=== PATIENT | female | born 1935 | race Caucasian/White ===

== ENCOUNTER 2016-07-10 09:13 | Emergency (ER) | payer MEDICARE, BC ==
[~2016-07-10] VITALS: Ht 167.6 cm; Wt 65.9 kg
[~2016-07-10 09:13] MED LIST: PREDNISONE20 MG PO
[2016-07-10 09:16] VITALS: TEMP 98.3
[2016-07-10 10:41] LABS: HEMATOCRIT 37.8 % (37.0-47.0); MEAN CELL VOLUME 88 fl (80.0-100.0); MEAN CORPUSCULAR HEMOGLOBIN 28 pg (27.0-31.0); MEAN CORPUSCULAR HGB CONC 32 g/dl (33.0-37.0); PLATELET COUNT 278 K/mm3 (130-400); RED BLOOD COUNT 4.32 M/mm3 (4.10-5.30); REDCELL DISTRIBUTION WIDTH-CV 13.7 % (11.5-14.5); WHITE BLOOD COUNT 9.7 K/mm3 (4.8-10.8)
[2016-07-10 10:43] LABS: HEMOGLOBIN 11.9 g/dl (12.5-16.0)
[2016-07-10 10:44] LABS: ADD PATHOLOGY DIFF REVIEW NO
[2016-07-10 10:50] LABS: ADJUSTED CALCIUM 9.2 mg/dL (8.4-10.2); ALBUMIN 3.2 gm/dL (3.5-5.0); BILIRUBIN,TOTAL 1.1 mg/dL (0.0-1.0); CALCIUM 8.6 mg/dL (8.4-10.2); CREATININE, serum 0.77 mg/dL (0.52-1.25); POTASSIUM 3.6 mmol/L (3.4-5.0); TOTAL PROTEIN 6.6 gm/dL (6.4-8.2)
[2016-07-10 11:20] LABS: BAND 64 % (0-10); BASOPHIL 1 % (0-2); EOSINOPHIL 0 % (0-4); METAMYELOCYTE 3 % (0-0); MYELOCYTE 2 % (0-0); NEUTROPHILS 7 % (42.0-75.2); TOTAL CELLS COUNTED 100
[2016-07-10] MEDS ORDERED: ZESTRIL 5MG5 MG PO (12:10)
[2016-07-10] MEDS ORDERED: SYNTHROID0.112 MG/T PO (12:10)
[2016-07-10] MEDS ORDERED: ASACOL HD800 MG PO (12:10)
[2016-07-10] MEDS ORDERED: MULTIPLE VITAMI1 CAP PO (12:11)
[2016-07-10] MEDS ORDERED: VITAMIN D32000 IU PO (12:11)
[2016-07-10] MEDS ORDERED: CALCIUM 600MG+D1 TAB PO (12:11)
[2016-07-10] MEDS ORDERED: NATURE'S BLEND400 IU PO (12:12)
[2016-07-10] MEDS ORDERED: CO Q-1010 M1 PO (12:12)
[2016-07-10] MEDS ORDERED: VITAMIN B-1000 MCG/T PO (12:13)
[2016-07-10] MEDS ORDERED: ASPIRIN E.C. 8181 MG PO (12:13)
[2016-07-10] MEDS ORDERED: VITAMIN B-6100 MG PO (12:13)
[2016-07-10] MEDS ORDERED: OCUVITE1 TA1 PO (12:14)
[2016-07-10] MEDS ORDERED: VITAMIN C500 MG PO (12:14)
[2016-07-10] MEDS ORDERED: PREDNISONE20 MG PO (12:38)
[2016-07-10 12:58] VITALS: BP 138/70; PULSE 85
== END 2016-07-10 13:08 | disposition home or self-care (01) ==
LOC: COL.ER 09:13
PROVIDERS: Physician Assistant
DX: K52.9 Noninfective gastroenteritis and colitis, unspecified (principal); I10 Essential (primary) hypertension
CPT/HCPCS: J7030; J7512; Q9967

== ENCOUNTER → 2016-07-11 | Outpatient (CLI) | payer MEDICARE, BC ==
[~2016-07-11] MED LIST changes: +ASACOL HD800 MG PO; +ASPIRIN E.C. 8181 MG PO; +CALCIUM 600MG+D1 TAB PO; +CO Q-1010 M1 PO; +MULTIPLE VITAMI1 CAP PO; +NATURE'S BLEND400 IU PO; +OCUVITE1 TA1 PO; +SYNTHROID0.112 MG/T PO; +VITAMIN B-1000 MCG/T PO; +VITAMIN B-6100 MG PO; +VITAMIN C500 MG PO; +VITAMIN D32000 IU PO; +ZESTRIL 5MG5 MG PO
== END ==
LOC: ZCOL.LAB 09:17
DX: Z01.89 Encounter for other specified special examinations (principal)

== ENCOUNTER → 2016-09-11 | Outpatient (CLI) | payer MEDICARE, BC | LOC: MC.RAD 13:39 | DX: Z12.31 Encounter for screening mammogram for malignant neoplasm of breast (principal) ==

== ENCOUNTER → 2016-10-28 | Outpatient (CLI) | payer MEDICARE, BC | LOC: COL.RAD 12:45 | DX: E04.1 Nontoxic single thyroid nodule (principal) ==

== ENCOUNTER → 2017-09-28 | Outpatient (CLI) | payer MEDICARE, BC | LOC: MC.RAD 10:18 | DX: Z12.31 Encounter for screening mammogram for malignant neoplasm of breast (principal) ==

== ENCOUNTER → 2018-10-25 | Outpatient (CLI) | payer MEDICARE, BC | LOC: MC.RAD 10-12 14:45 | DX: Z12.31 Encounter for screening mammogram for malignant neoplasm of breast (principal); I10 Essential (primary) hypertension ==

== ENCOUNTER 2021-01-12 07:58 | Emergency (ER) | payer MEDICARE, BC ==
[~2021-01-12] VITALS: Ht 165.1 cm; Wt 60.9 kg
[2021-01-12 08:07] VITALS: TEMP 97.8
[2021-01-12 08:30] LABS: BASO % 0.3 % (0.0-2.0); EOS # 0.1 (0.0-0.7); EOS % 0.9 % (0-4.0); GRAN # 8.8 (1.4-6.5); GRAN % 80.3 % (42.2-75.2); HEMATOCRIT 42.6 % (37.0-47.0); HEMOGLOBIN 13.5 g/dl (12.5-16.0); MEAN CELL VOLUME 84 fl (80.0-100.0); MEAN CORPUSCULAR HEMOGLOBIN 27 pg (27.0-31.0); MEAN CORPUSCULAR HGB CONC 32 g/dl (33.0-37.0); MONO % 9.1 % (1.7-9.3); PLATELET COUNT 270 K/mm3 (130-400); RED BLOOD COUNT 5.07 M/mm3 (4.10-5.30); REDCELL DISTRIBUTION WIDTH-CV 16.7 % (11.5-14.5)
[2021-01-12 08:43] LABS: ALBUMIN 3.8 gm/dL (3.4-4.8); BILIRUBIN,TOTAL 0.5 mg/dL (0.2-1.2); C-REACTIVE PROTEIN 1.1 mg/dL (0.00-0.50); CALCIUM 9.8 mg/dL (8.4-10.2); CREATININE, serum 0.79 mg/dL (0.57-1.11); POTASSIUM 4.3 mmol/L (3.5-4.5); TOTAL PROTEIN 7.7 gm/dL (6.2-8.1)
[2021-01-12 09:01] LABS: COLLECTION METHOD CLEAN CATCH
[2021-01-12 09:11] LABS: MUCOUS Present /lpf; PH 6 (5-8); SQUAMOUS EPITHELIAL 0-2 /hpf; URINE APPEARANCE Clear; URINE BACTERIA None Seen /hpf; URINE BILIRUBIN Negative (NEGATIVE); URINE BLOOD Negative (NEGATIVE); URINE COLOR Yellow; URINE GLUCOSE Negative (NEGATIVE); URINE KETONE Trace (NEGATIVE); URINE LEUKOCYTE ESTERASE Negative (NEGATIVE); URINE NITRATE Negative (NEGATIVE); URINE PROTEIN(semi-quant) 1+ (NEGATIVE); URINE UROBILINOGEN Negative (NEGATIVE)
[2021-01-12] MEDS ORDERED: PREDNISONE20 MG PO (10:40)
[2021-01-12] MEDS ORDERED: NORCO 325 MG-51 TAB PO (10:47)
[2021-01-12 11:08] VITALS: BP 140/70; PULSE 80
[2021-01-13] MEDS ORDERED: ZOFRAN ODT4 MG PO (09:30)
== END 2021-01-12 11:07 | disposition home or self-care (01) ==
LOC: COL.ER 07:58
PROVIDERS: Family Medicine
DX: K51.90 Ulcerative colitis, unspecified, without complications (principal); I10 Essential (primary) hypertension; Z88.5 Allergy status to narcotic agent; Z79.899 Other long term (current) drug therapy
CPT/HCPCS: J2270; J2405; J2930; J7120; Q9967

== ENCOUNTER 2021-01-13 05:12 | Emergency (ER) | payer MEDICARE, BC ==
[~2021-01-13] VITALS: Ht 165.1 cm; Wt 60.9 kg
[~2021-01-13 05:12] MED LIST changes: +NORCO 325 MG-51 TAB PO
[2021-01-13 05:22] VITALS: TEMP 97.9
[2021-01-13 05:40] LABS: BASO % 0.2 % (0.0-2.0); EOS % 0.1 % (0-4.0); GRAN # 11.9 (1.4-6.5); GRAN % 84.1 % (42.2-75.2); HEMATOCRIT 38.2 % (37.0-47.0); HEMOGLOBIN 12.3 g/dl (12.5-16.0); LYMPH # 1.1 (1.2-3.4); LYMPH % 7.6 % (20.0-51.0); MEAN CELL VOLUME 84 fl (80.0-100.0); MEAN CORPUSCULAR HEMOGLOBIN 27 pg (27.0-31.0); MEAN CORPUSCULAR HGB CONC 32 g/dl (33.0-37.0); MEAN PLATELET VOLUME 10.6 fl (7.4-10.4); MONO # 1.1 (0.1-0.6); MONO % 7.6 % (1.7-9.3); PLATELET COUNT 276 K/mm3 (130-400); RED BLOOD COUNT 4.55 M/mm3 (4.10-5.30); REDCELL DISTRIBUTION WIDTH-CV 16.7 % (11.5-14.5)
[2021-01-13 07:54] LABS: ALBUMIN 3.6 gm/dL (3.4-4.8); BILIRUBIN,TOTAL 0.4 mg/dL (0.2-1.2); CALCIUM 9.4 mg/dL (8.4-10.2); CREATININE, serum 0.8 mg/dL (0.57-1.11); POTASSIUM 4.1 mmol/L (3.5-4.5); TOTAL PROTEIN 7.3 gm/dL (6.2-8.1); TROPONIN-I 0.011 ng/mL (0.00-0.033)
[2021-01-13] MEDS ORDERED: ZOFRAN ODT4 MG PO (09:30)
[2021-01-13 09:43] VITALS: BP 152/74; PULSE 67
== END 2021-01-13 09:42 | disposition home or self-care (01) ==
LOC: COL.ER 05:12
PROVIDERS: Emergency Medicine
DX: K51.90 Ulcerative colitis, unspecified, without complications (principal); R11.2 Nausea with vomiting, unspecified; Z90.710 Acquired absence of both cervix and uterus; Z79.899 Other long term (current) drug therapy
CPT/HCPCS: J1100; J1170; J1885; J2270; J2405; J7030

== ENCOUNTER 2021-05-29 11:01 | Inpatient (IN) | payer MEDICARE, BC ==
[~2021-05-29] VITALS: Ht 165.1 cm; Wt 52.6 kg
[~2021-05-29 11:01] MED LIST changes: +SYNTHROID0.075 MG/T PO; -SYNTHROID0.112 MG/T PO; -ZESTRIL 5MG5 MG PO; +ZESTRIL2.5 MG PO; +ZOFRAN ODT4 MG PO
[2021-05-29 11:43] LABS: HEMATOCRIT 38.8 % (37.0-47.0); HEMOGLOBIN 12.2 g/dl (12.5-16.0); MEAN CELL VOLUME 82 fl (80.0-100.0); MEAN CORPUSCULAR HEMOGLOBIN 26 pg (27-31); MEAN CORPUSCULAR HGB CONC 31 g/dl (33.0-37.0); MEAN PLATELET VOLUME 9.8 fl (7.4-10.4); PLATELET COUNT 387 K/mm3 (130-400); RED BLOOD COUNT 4.74 M/mm3 (4.10-5.30); REDCELL DISTRIBUTION WIDTH-CV 14.9 % (11.5-14.5)
[2021-05-29 11:59] LABS: ALANINE AMINOTRANSFERASE 12 U/L (0-55); ALBUMIN 2.7 gm/dL (3.4-4.8); ALKALINE PHOSPHATASE 87 U/L (40-150); ANION GAP 12 mmol/L (7-16); AST,SGOT 11 U/L (5-34); BILIRUBIN,TOTAL 0.7 mg/dL (0.2-1.2); BLOOD UREA NITROGEN 24 mg/dL (10-20); C-REACTIVE PROTEIN 15.03 mg/dL (0.00-0.50); CALCIUM 8.7 mg/dL (8.4-10.2); CARBON DIOXIDE 26 mmol/L (23-31); CHLORIDE 102 mmol/L (98-107); GLUCOSE 107 mg/dL (70-99); LIPASE 12 U/L (8-78); SODIUM 140 mmol/L (136-145); TOTAL PROTEIN 6.4 gm/dL (6.2-8.1)
[2021-05-29 12:05] LABS: TROPONIN-I < 0.010 ng/mL (0.00-0.033)
[2021-05-29 12:13] LABS: BAND 22 % (0-10); HYPOCHROMIA 1+; LYMPHOCYTE 8 % (20.0-51.0); NEUTROPHILS 59 % (42.0-75.2); PLATELET ESTIMATE NORMAL (NORMAL)
[2021-05-29 15:36] VITALS: BP 145/74; PULSE 60; TEMP 98.9
[2021-05-29] MEDS ORDERED: CENTRUM SILVER1 TA2 PO (15:52)
[2021-05-29] MEDS ORDERED: PRESERVISION1 SGL PO (15:53)
[2021-05-29] MEDS ORDERED: PREVACID 15MG15 M1 PO (15:54)
[2021-05-29] MEDS ORDERED: ADVIL200 MG PO (15:56)
[2021-05-29] MEDS ORDERED: MASON NATURAL2000 IU IU (15:59)
--- NOTE | 2021-05-29 18:32 | NUR ---
ADMISSION INTAKE AND ASSESSMENT COMPLETED. ORIENTED PT TO ROOM. CONTINUING TO MONITOR.
--- NOTE | 2021-05-29 20:00 | NUR ---
NOTIFIED MINDY ARIAS OF AFIB WITH RVR. GIVE METOPROLOL NOW.
--- NOTE | 2021-05-29 20:02 | NUR ---
REPORTED BY TELE PT IS IN AFIB WITH RVR. ORDERED EKG. PT UP TO BR TO HAVE A BM. OTR FLATBED DRIVER WITH PT.
[2021-05-29 20:13] VITALS: BP 103/87; PULSE 107; TEMP 98.4
--- NOTE | 2021-05-29 20:17 | NUR ---
GAVE METOPROLOL ORDERED. EKG DONE. RATE 128. PT DENIES CHEST PAIN OR SOB. JUST FEELS WEAK. HAD LOOSE STOOL WITH SM AMT OF BLOOD NOTED.
--- NOTE | 2021-05-29 20:35 | NUR ---
PT RESTING WITH EYES CLOSED. NO DISTRESS. RHYTHM AFIB AT THIS TIME.
--- NOTE | 2021-05-29 20:39 | NUR ---
HR 117
--- NOTE | 2021-05-29 21:04 | NUR ---
REPORTED PT STATUS TO MINDY ARIAS. SEE NEW ORDER FOR PROTONIX FOR ABD DISCOMFORT.
--- NOTE | 2021-05-29 22:08 | NUR ---
ASSITED PT TO BR. HAD BM. SPECIMEN SENT TO LAB FOR GI PANEL.
[2021-05-30] VITALS (7 sets, daily range): BP systolic 95–113; BP diastolic 48–62; PULSE 85–108; TEMP 98–102.1
--- NOTE | 2021-05-30 00:06 | NUR ---
REPORTED GI PANEL RESULTS TO MINDY ARIAS. NONEW ORDERS.
--- NOTE | 2021-05-30 00:50 | NUR ---
TEMP 102.1 CALLED MINDY ARIAS SEE NEW ORDERS FOR TYLENOL.
--- NOTE | 2021-05-30 01:00 | NUR ---
HEP XA 0.45. RATE IS THE UNCHANGED. WILL OBTAIN NEXT HEPA XA AT 0700.
--- NOTE | 2021-05-30 02:38 | NUR ---
TEMP 98.5 NOW.
--- NOTE | 2021-05-30 03:03 | NUR ---
PT RESTING AT THIS TIME. NO DISTRESS.
--- NOTE | 2021-05-30 06:12 | NUR ---
PT RESTING NOW. NO DISTRESS. HEPARING INFUSING 10.5CC/HR PER PROTOCOL TO RT WRIST.
[2021-05-30 07:02] LABS: HEMOGLOBIN 11.2 g/dl (12.5-16.0); MEAN CELL VOLUME 81 fl (80.0-100.0); MEAN CORPUSCULAR HEMOGLOBIN 26 pg (27-31); MEAN CORPUSCULAR HGB CONC 32 g/dl (33.0-37.0); MEAN PLATELET VOLUME 9.9 fl (7.4-10.4); PLATELET COUNT 328 K/mm3 (130-400); RED BLOOD COUNT 4.31 M/mm3 (4.10-5.30)
[2021-05-30 07:13] LABS: HEMATOCRIT 34.8 % (37.0-47.0)
[2021-05-30 07:23] LABS: CALCIUM 8.1 mg/dL (8.4-10.2); CREATININE, serum 0.71 mg/dL (0.57-1.11); POTASSIUM 3.6 mmol/L (3.5-4.5)
[2021-05-30 07:59] LABS: COLLECTION METHOD CLEAN CATCH
[2021-05-30 08:33] LABS: MUCOUS Present (NOT PRESENT); SQUAMOUS EPITHELIAL 0-2 /hpf (0-10); URINE BACTERIA None Seen /hpf (NONE SEEN)
[2021-05-30 08:34] LABS: URINE APPEARANCE Clear (CLEAR/HAZY); URINE COLOR Yellow (YELLOW)
[2021-05-30 08:35] LABS: PH 6 (5-8); URINE GLUCOSE Negative (NEGATIVE); URINE KETONE Trace (NEGATIVE); URINE PROTEIN(semi-quant) Negative (NEGATIVE)
[2021-05-30 08:36] LABS: URINE BILIRUBIN Negative (NEGATIVE); URINE BLOOD Negative (NEGATIVE); URINE LEUKOCYTE ESTERASE Negative (NEGATIVE); URINE NITRATE Negative (NEGATIVE); URINE UROBILINOGEN Negative (NEGATIVE)
[2021-05-30 09:25] LABS: BAND 35 % (0-10); EOSINOPHIL 1 % (0-4); LYMPHOCYTE 19 % (20.0-51.0); NEUTROPHILS 35 % (42.0-75.2); PLATELET ESTIMATE NORMAL (NORMAL)
--- NOTE | 2021-05-30 11:10 | NUR ---
Patient laying in bed upon entering the room. Does c/o lower abdominal pain, but is refusing any pain medication. Hep XA came back WNL, which equals 3 goals; Next Hep XA to be scheduled for 0600 on 05/31.
--- NOTE | 2021-05-30 11:26 | NUR ---
First visit from the customer loyalty representative. No needs right now.
--- NOTE | 2021-05-30 15:23 | NUR ---
Wig Maker met with patient and her , Pedro (ph#[phone]) to discuss discharge planning. Patient lives in [place] with Pedro and sees Dr. Odonnell for primary care. Patient obtains medications from [facility] pharmacy with no difficulties and does not use any DME. Patient is independent with ADLS and plans to return home at time of discharge. Patient reports she has never had home health in the past and would have to think about it before deciding if she would be interested or not. Patient states she believes she had a DPOA-HC at Dr. Torres's office. Patient's next of kin is her , Pedro. Discharge Plan: Home
--- NOTE | 2021-05-30 18:01 | NUR ---
Patient has not had any complaints or concerns. Assisted to the bathroom 2x by PCT. Received call from telemetry that patient's HR jumped to the 140s, patient was getting up to the bathroom at this time. Once patient was back in bed, HR dropped back to a normal range. Patient's HR is currently in the 80-90s, and remains in A-fib. Patient did not experience any dizzness, CP, or SOB upon ambulation to the bathroom. Heparin GTT remains at 10.5mL/hr; Next redraw scheduled for 0600 on 05/31.
--- NOTE | 2021-05-30 20:24 | NUR ---
Patient with HR of Afib RVR 160 when up, 120-140 when in bed, call placed to Dr. Metzger NON: change metroprolol to 25mg po BID. updated patient on plan of care.
[2021-05-31 04:22] VITALS: BP 107/49; PULSE 68; TEMP 98.4
[2021-05-31 06:50] LABS: HEMOGLOBIN 10.9 g/dl (12.5-16.0); MEAN CELL VOLUME 83 fl (80.0-100.0); MEAN CORPUSCULAR HEMOGLOBIN 26 pg (27-31); MEAN CORPUSCULAR HGB CONC 31 g/dl (33.0-37.0); MEAN PLATELET VOLUME 11.1 fl (7.4-10.4); PLATELET COUNT 313 K/mm3 (130-400); RED BLOOD COUNT 4.25 M/mm3 (4.10-5.30); REDCELL DISTRIBUTION WIDTH-CV 15.1 % (11.5-14.5)
[2021-05-31 06:54] LABS: CREATININE, serum 0.72 mg/dL (0.57-1.11); POTASSIUM 3.5 mmol/L (3.5-4.5)
[2021-05-31 06:57] LABS: HEMATOCRIT 35.4 % (37.0-47.0)
--- NOTE | 2021-05-31 07:38 | NUR ---
Hep Xa came back at 0.14, protocol followed; Patient's bolused 1,000 units via pump, rate increased by 250 units/hr. New rate 1,300 units/hr. Confirmed gabby Bridges RN.
[2021-05-31 07:54] LABS: BAND 37 % (0-10); LYMPHOCYTE 11 % (20.0-51.0); NEUTROPHILS 46 % (42.0-75.2)
[2021-05-31 07:55] LABS: OVALOCYTES 1+; PLATELET ESTIMATE NORMAL (NORMAL)
[2021-05-31 08:02] VITALS: BP 99/52; PULSE 63; TEMP 98.1
[2021-05-31 11:10] VITALS: BP 108/53; PULSE 86; TEMP 98.1
--- NOTE | 2021-05-31 14:09 | NUR ---
Shift assessment completed w/ student nurse. This RN agrees with the student nurses findings. Patient is A&Ox4, and a SBA. Patient has a steady gait, but is just a litte bit weak. Patient utilizes call light when any needs arise, and call light remains w/in reach. Patient's Hep Xa came back w/in the goal range. Next redraw is scheduled for 1800. Plan is for patient to come off the heparin gtt at 2100 and begin eliquis.
--- NOTE | 2021-05-31 14:38 | NUR ---
Patient called stating she had a bloody stool and that she felt the nurse should come look at it. This RN assessed, there was a large amount of bright red, liquid stool present in the toilet. This RN attempted to contact Dori and Dr. Craig, w/o any answer. At this time, it was decided by this RN to place the heparin gtt on standby until further direction is provided by the hospitalist.
--- NOTE | 2021-05-31 14:43 | NUR ---
Dr. Craig instructed this RN to hold the heparin gtt for now.
[2021-05-31 16:00] VITALS: BP 110/52; PULSE 82; TEMP 97.9
[2021-05-31 18:12] LABS: HEMOGLOBIN 10.2 g/dl (12.5-16.0)
[2021-05-31 18:15] LABS: HEMATOCRIT 33.2 % (37.0-47.0)
[2021-05-31 20:16] VITALS: BP 105/53; PULSE 45; TEMP 98.8
[2021-06-01 00:12] VITALS: BP 104/58; PULSE 84; TEMP 98.6
[2021-06-01 04:07] VITALS: BP 127/67; PULSE 87; TEMP 98
--- NOTE | 2021-06-01 04:30 | NUR ---
ASSESSMENT COMPLETE FOR THIS SHIFT. PT RESTING IN BED. PT STATED SHE HAD JUST GOTTEN OUT OF THE BATHROOM WITH ANOTHER ROUND OF LOOSE STOOLS. PT STATED SHE WAS STARTING TO GET EXHAUSTED FROM ALL THE GETTING UP TO THE RESTROOM. HOSPITAL CALLED TO SEE IF PT COULD GET ANYTHING. BECAUSE OF PT'S POSITIVE GI PANEL, PT UNABLE TO GET ANYTHING AT THIS TIME. PT INFORMED. PT DENIED BLOODY STOOLS THIS SHIFT, PAIN, PALPITATIONS, N,V, SOB OR DIZZINESS. PT EXPRESSED NO OTHER NEEDS AT THIS TIME. CALL LIGHT WITHIN REACH.
[2021-06-01 07:19] LABS: CALCIUM 7.9 mg/dL (8.4-10.2); CREATININE, serum 0.66 mg/dL (0.57-1.11); MAGNESIUM 1.9 mg/dL (1.6-2.6); POTASSIUM 3.6 mmol/L (3.5-4.5)
[2021-06-01 07:34] LABS: MEAN CELL VOLUME 83 fl (80.0-100.0); MEAN CORPUSCULAR HGB CONC 31 g/dl (33.0-37.0); MEAN PLATELET VOLUME 10.2 fl (7.4-10.4); PLATELET COUNT 297 K/mm3 (130-400); RED BLOOD COUNT 3.84 M/mm3 (4.10-5.30); REDCELL DISTRIBUTION WIDTH-CV 15.1 % (11.5-14.5)
[2021-06-01 07:47] LABS: HEMATOCRIT 31.8 % (37.0-47.0); HEMOGLOBIN 9.8 g/dl (12.5-16.0); MEAN CORPUSCULAR HEMOGLOBIN 26 pg (27-31)
[2021-06-01 08:39] VITALS: BP 118/61; PULSE 85; TEMP 97.6
--- NOTE | 2021-06-01 09:20 | NUR ---
PT RESTING IN BED. MORNING MEDICATIONS GIVEN. SHIFT ASSESSMENT COMPLETED. PT REPORTS PAIN ACROSS ABDOMEN /, HAS NOTHING ON eMAR FOR PAIN OTHER THAN TYLENOL WHICH PT STATES DOES NOTHING FOR HER. HAS HAD MULTIPLE LOOSE STOOLS OVER NIGHT. CONTINUING TO MONITOR.
[2021-06-01 11:18] LABS: BAND 28 % (0-10); EOSINOPHIL 4 % (0-4); LYMPHOCYTE 16 % (20.0-51.0); NEUTROPHILS 30 % (42.0-75.2); PLATELET ESTIMATE NORMAL (NORMAL)
[2021-06-01 11:19] LABS: ANISOCYTOSIS 1+; HYPOCHROMIA 3+
[2021-06-01 13:00] VITALS: BP 118/66; PULSE 96; TEMP 98.3
[2021-06-01 16:30] VITALS: BP 152/72; PULSE 90; TEMP 98.3
[2021-06-01 19:52] VITALS: BP 120/68; PULSE 103; TEMP 97.9
[2021-06-02] VITALS (8 sets, daily range): BP systolic 103–138; BP diastolic 62–88; PULSE 59–112; TEMP 97.5–97.9
--- NOTE | 2021-06-02 04:20 | NUR ---
ASSESSMENT COMPLETE FOR THIS SHIFT. PT SITTING ON THE SIDE OF THE BED COMPLAINING OF ABD PAIN SHE RATED AT AN 8. PT STATED SHE WAS TOLD BY DR. PIKE HE WOULD ORDER IV MORPHINE FOR HER PAIN. NO MORPHINE ORDER IN FOR PT. HOSPITALIST CALLED, MORPHINE ORDER REQUESTED AND GIVEN. PT GIVEN MORPHINE 3 TIMES, SO FAR TONIGHT. PT REPORTS THE FIRST DOSE WAS NOT EFFECTIVE, SECOND DOSE BROUGHT HER PAIN DOWN TO A 6 AND I JUST GAVE HER A THIRD DOSE, PER HER REQUEST. WILL MONITOR FOR EFFECTIVENESS. PT DENIES PALPITATIONS, N,V,D, SOB OR DIZZINESS. PT EXPRESSED NO OTHER NEEDS AT THIS TIME. CALL LIGHT WITHIN REACH.
--- NOTE | 2021-06-02 07:00 | NUR ---
CORRECT: PT STATES SHE HAS HAD DIARRHEA SEVERAL TIMES THIS SHIFT. UPDATE: PT HAS HAD A 4TH DOSE OF MORPHINE. PT STATES THE PAIN HAS GREATLY IMPROVED ON THE RIGHT TO THE MIDDLE OF HER ABD, BUT THE LEFT SIDE IS STILL AT ABOUT A 5.
--- NOTE | 2021-06-02 10:25 | NUR ---
PT SITTING UP IN BED. MORNING MEDICATIONS GIVEN. SHIFT ASSESSMENT COMPLETED. REPORTS ABD PAIN 09/27. REPORTS MULTIPLE STOOLS OVERNIGHT WITH WATERY CONSISTENCY, WILL OBTAIN STOOL SAMPLE. CONTINUING TO MONITOR.
[2021-06-02 15:32] LABS: CLOSTRIDIUM DIFF A/B NEG; CLOSTRIDIUM DIFF A/B INTERP No C.diff present
--- NOTE | 2021-06-02 18:30 | NUR ---
Report from KIRILL Sue; report given and met patient at bedside, she had complaints of abd pain and we discussed the pros and cons of giving her the morphine she has ordered PRN and decided to give it to her to stay on top of any severe pain. Patient watching TV and resting comfortably.
[2021-06-03] VITALS (8 sets, daily range): BP systolic 105–128; BP diastolic 55–95; PULSE 69–148; TEMP 95.6–98
--- NOTE | 2021-06-03 02:12 | NUR ---
RECEIVED REPORT FROM RN, MID SHIFT.
--- NOTE | 2021-06-03 06:56 | NUR ---
CHANGE OF SHIFT REPORT GIVEN TO DAY SHIFT DONTRELL ROY.
[2021-06-03 07:01] LABS: BASO % 0.5 % (0.0-2.0); GRAN # 7.3 K/mm3 (1.4-6.5); GRAN % 88.7 % (42.2-75.2); LYMPH # 0.5 K/mm3 (1.2-3.4); LYMPH % 5.9 % (20.0-51.0); MEAN CELL VOLUME 82 fl (80.0-100.0); MEAN CORPUSCULAR HEMOGLOBIN 25 pg (27-31); MEAN CORPUSCULAR HGB CONC 31 g/dl (33.0-37.0); MEAN PLATELET VOLUME 10.3 fl (7.4-10.4); MONO # 0.3 K/mm3 (0.1-0.6); MONO % 3.6 % (1.7-9.3); PLATELET COUNT 383 K/mm3 (130-400); RED BLOOD COUNT 3.93 M/mm3 (4.10-5.30); REDCELL DISTRIBUTION WIDTH-CV 15.1 % (11.5-14.5)
[2021-06-03 07:03] LABS: HEMATOCRIT 32.1 % (37.0-47.0)
[2021-06-03 07:21] LABS: C-REACTIVE PROTEIN 7.22 mg/dL (0.00-0.50); CALCIUM 8.4 mg/dL (8.4-10.2); CREATININE, serum 0.72 mg/dL (0.57-1.11); POTASSIUM 3.6 mmol/L (3.5-4.5)
--- NOTE | 2021-06-03 08:53 | NUR ---
PT SITTING UP IN BED. MORNING MEDICATIONS GIVEN. SHIFT ASSESSMENT COMPLETED. REPORTS MILD ABD PAIN, BENTYL GIVEN PER MAR. REPORTS ONLY ONE SMALL LOOSE STOOL OVER NIGHT. STATES SHES FEELING MUCH BETTER TODAY. DENIES ANY NEEDS AT THIS TIME. CONTINUING TO MONITOR.
--- NOTE | 2021-06-03 10:10 | NUR ---
The patient is walking 500 ft with PT. PT is recommending that they will monitor to see if the patient would need home health vs outpatient therapy. SW met with the patient to review discharge plan and PT's recommendation. The patient confirms that she still plans on returning home with her upon discharge. The patient states that she cannot decide right now if she would want home health or outpatient therapy. She would like to wait until she knows when she will be discharged. *Discharge plan: home with . Patient may be interested in home health or outpatient therapy*
--- NOTE | 2021-06-03 18:05 | NUR ---
PT REQUESTING PAIN MEDICATION A COUPLE TIMES TODAY FOR ABD PAIN. OTHER THAN THAT HAD NO OTHER NEEDS TODAY.
--- NOTE | 2021-06-04 | NUR ---
PT REFUSED HER SCD'S TONIGHT.
--- NOTE | 2021-06-04 02:02 | NUR ---
ASSESSMENT COMPLETE FOR THIS SHIFT. PT SITTING ON THE SIDE OF THE BED TALKING ON THE PHONE. PT COMPLAINED OF ABD PAIN. PT GIVEN BENTYL FOR PAIN. PT FELT BENTYL WAS HELPFUL. PT ALSO STATED HER DIARRHEA WAS BACK. PT STATED SHE'S HAD A FEW SMALL, BY LOOSE STOOLS. PT DENIES PALPITATIONS, N,V, SOB OR DIZZNESS. PT EXPRESSED NO OTHER NEEDS AT THIS TIME. CALL LIGHT WITHIN REACH.
[2021-06-04 03:45] VITALS: BP 121/75; PULSE 68; TEMP 97.8
[2021-06-04 06:39] LABS: BASO # 0.1 K/mm3 (0.0-0.2); BASO % 0.6 % (0.0-2.0); GRAN # 9.2 K/mm3 (1.4-6.5); GRAN % 87.6 % (42.2-75.2); HEMOGLOBIN 10.3 g/dl (12.5-16.0); LYMPH # 0.5 K/mm3 (1.2-3.4); LYMPH % 4.8 % (20.0-51.0); MEAN CELL VOLUME 82 fl (80.0-100.0); MEAN CORPUSCULAR HEMOGLOBIN 26 pg (27-31); MEAN CORPUSCULAR HGB CONC 31 g/dl (33.0-37.0); MEAN PLATELET VOLUME 10.3 fl (7.4-10.4); MONO # 0.6 K/mm3 (0.1-0.6); MONO % 5.8 % (1.7-9.3); PLATELET COUNT 392 K/mm3 (130-400); RED BLOOD COUNT 4.02 M/mm3 (4.10-5.30); REDCELL DISTRIBUTION WIDTH-CV 15.3 % (11.5-14.5)
[2021-06-04 06:44] LABS: CALCIUM 8.3 mg/dL (8.4-10.2); CREATININE, serum 0.78 mg/dL (0.57-1.11); POTASSIUM 3.8 mmol/L (3.5-4.5)
[2021-06-04 06:48] LABS: HEMATOCRIT 33.1 % (37.0-47.0)
[2021-06-04 07:10] VITALS: BP 150/82; PULSE 67; TEMP 97.4
[2021-06-04 11:14] VITALS: BP 130/79; PULSE 70; TEMP 97.8
[2021-06-04] MEDS ORDERED: ELIQUIS 2.5 PO (11:39)
[2021-06-04] MEDS ORDERED: TOPROL XL 50MG50 MG PO (11:39)
[2021-06-04] MEDS ORDERED: BENTYL 10MG10 MG/CAP PO (11:39)
[2021-06-04] MEDS ORDERED: PREDNISONE20 MG PO (11:41)
[2021-06-04] MEDS ORDERED: TYLENOL 325MG325 MG PO (11:42)
[2021-06-04] MEDS ORDERED: LIALDA 1.2 GM1.2 GM PO (11:42)
--- NOTE | 2021-06-04 11:50 | NUR ---
MARYANN attended clinical rounds. The patient is to discharge back home with her today, 06/04. MARYANN met with the patient to follow up on home health or outpatient therapy. The patient declined both and states that she is not interested in either at this time. She had no concerns for SW. MARYANN presented and read the IM form outloud to the patient. The patient verbalized understanding and signed the form on her behalf. No additional needs at this time.
--- NOTE | 2021-06-04 13:03 | NUR ---
Discharge paperwork reviewed with the patient. Patient verbalized an understanding to follow doctors orders. IV removed, tip intact. Patient independent in the room. Waiting on ride home. No further needs expressed. Call light within reach
--- NOTE | 2021-06-04 14:05 | NUR ---
Patient transfered by wheelchair to the patient entrance. Discharge paperwork and personal belongings with the patient. No further needs expressed.
--- NOTE | 2021-06-04 14:44 | NUR ---
Agree with student assessment of the patient. In addition, the patient has an INT to the RT forearm ,CDI. A&Ox4. VSS. IV CDI. Denies pain and discomfort. Has been having frequent diarrhea.
== END 2021-06-04 14:05 | disposition home or self-care (01) | DRG 386 ==
LOC: COL.ER 11:01 → MEDICAL 14:04
PROVIDERS: Family Medicine; Internal Medicine Gastroenterology; Physician Assistant; ADMIT Internal Medicine
DX: K51.90 Ulcerative colitis, unspecified, without complications (principal); E44.0 Moderate protein-calorie malnutrition; I48.91 Unspecified atrial fibrillation; I10 Essential (primary) hypertension; E78.5 Hyperlipidemia, unspecified; E03.9 Hypothyroidism, unspecified; B96.20 Unspecified Escherichia coli [E. coli] as the cause of diseases classified elsewhere; D64.9 Anemia, unspecified; Z20.822 Contact with and (suspected) exposure to COVID-19; Z85.828 Personal history of other malignant neoplasm of skin; Z79.82 Long term (current) use of aspirin; Z79.52 Long term (current) use of systemic steroids; Z68.21 Body mass index [BMI] 21.0-21.9, adult
CPT/HCPCS: 99222-AI; 99232-AI; 99233-AI; 99239; C9113; J0610; J0696; J1644; J1940; J2270; J2405; J2930; J7030; J7040; J7120; Q9967

== ENCOUNTER 2021-07-22 08:36 | Day surgery (SDC) | payer MEDICARE, BC ==
[~2021-07-22] VITALS: Ht 165.1 cm; Wt 56.9 kg
[~2021-07-22 08:36] MED LIST changes: +ADVIL200 MG PO; +BENTYL 10MG10 MG/CAP PO; +CENTRUM SILVER1 TA2 PO; +ELIQUIS 2.5 PO; +LIALDA 1.2 GM1.2 GM PO; +MASON NATURAL2000 IU IU; +PRESERVISION1 SGL PO; +PREVACID 15MG15 M1 PO; +TOPROL XL 50MG50 MG PO; +TYLENOL 325MG325 MG PO
[2021-07-22 09:22] VITALS: BP 115/91; PULSE 90; TEMP 97.7
[2021-07-22] MEDS ORDERED: TOPROL XL 50MG50 MG PO (09:35)
[2021-07-22] MEDS ORDERED: ASACOL HD800 MG PO (09:36)
[2021-07-22 09:37] LABS: HEMATOCRIT 31.2 % (37.0-47.0); HEMOGLOBIN 9.6 g/dl (12.5-16.0); MEAN CELL VOLUME 85 fl (80.0-100.0); MEAN CORPUSCULAR HEMOGLOBIN 26 pg (27-31); MEAN CORPUSCULAR HGB CONC 31 g/dl (33.0-37.0); MEAN PLATELET VOLUME 9.4 fl (7.4-10.4); PLATELET COUNT 383 K/mm3 (130-400); RED BLOOD COUNT 3.69 M/mm3 (4.10-5.30); REDCELL DISTRIBUTION WIDTH-CV 17.9 % (11.5-14.5)
[2021-07-22 09:47] LABS: INR 1.3 (0.8-3.0); PROTHROMBIN TIME 14.1 SECONDS (9.7-12.8)
[2021-07-22 09:50] LABS: PARTIAL THROMBOPLASTIN TIME 31.6 SECONDS (26.0-37.0)
[2021-07-22 09:54] LABS: CALCIUM 9.1 mg/dL (8.4-10.2); CREATININE, serum 0.82 mg/dL (0.57-1.11); MAGNESIUM 2.1 mg/dL (1.6-2.6); POTASSIUM 4.5 mmol/L (3.5-4.5)
[2021-07-22 10:15] LABS: THYROID STIMULATING HORMONE 1.484 uIU/mL (0.350-4.940)
[2021-07-22] MEDS ORDERED: CORDARONE200 MG/TAB PO (10:54)
[2021-07-22 11:00] VITALS: BP 95/59; PULSE 60
[2021-07-22 11:15] VITALS: BP 98/60; PULSE 64
[2021-07-22 11:30] VITALS: BP 100/56; PULSE 64
[2021-07-22 11:45] VITALS: BP 108/62; PULSE 64
--- NOTE | 2021-07-22 12:05 | NUR ---
DC instructions were reviewed with pt and . Both expressed understanding. Pt has tolerated PO fluids without issue. She is steady on feet to get dressed but does report feeling sligtly "whoozy" with extended standing. Fall precautions again reviewed with pt and she expresses understanding. She is assisted out to 's car by wheelchair with belongings. She remained in sinus rhythm on panel monitor following cardioversion procedure.
== END 2021-07-22 12:05 | disposition home or self-care (01) ==
LOC: COL.CAR 08:36
PROVIDERS: Internal Medicine Cardiovascular Disease
DX: I48.0 Paroxysmal atrial fibrillation (principal); I10 Essential (primary) hypertension; R60.0 Localized edema; E78.5 Hyperlipidemia, unspecified; C44.91 Basal cell carcinoma of skin, unspecified; Z79.899 Other long term (current) drug therapy; Z79.01 Long term (current) use of anticoagulants
CPT/HCPCS: J2704; J7120

== ENCOUNTER 2021-11-09 22:27 | Emergency (ER) | payer MEDICARE, BC ==
[~2021-11-09] VITALS: Ht 165.1 cm; Wt 58.2 kg
[~2021-11-09 22:27] MED LIST changes: +CORDARONE200 MG/TAB PO
[2021-11-09 22:37] VITALS: TEMP 98.6
[2021-11-09 23:16] LABS: BASO # 0.1 K/mm3 (0.0-0.2); BASO % 0.7 % (0.0-2.0); EOS % 0.3 % (0.0-4.0); GRAN # 12.6 K/mm3 (1.4-6.5); GRAN % 85.5 % (42.2-75.2); HEMATOCRIT 33.8 % (37.0-47.0); HEMOGLOBIN 10.6 g/dl (12.5-16.0); LYMPH # 0.6 K/mm3 (1.2-3.4); LYMPH % 4.2 % (20.0-51.0); MEAN CELL VOLUME 87 fl (80.0-100.0); MEAN CORPUSCULAR HEMOGLOBIN 27 pg (27-31); MEAN CORPUSCULAR HGB CONC 31 g/dl (33.0-37.0); MEAN PLATELET VOLUME 10.5 fl (7.4-10.4); MONO # 1.3 K/mm3 (0.1-0.6); MONO % 8.8 % (1.7-9.3); PLATELET COUNT 249 K/mm3 (130-400); REDCELL DISTRIBUTION WIDTH-CV 17.8 % (11.5-14.5)
[2021-11-09 23:32] LABS: ALBUMIN 3.2 gm/dL (3.4-4.8); BILIRUBIN,TOTAL 0.4 mg/dL (0.2-1.2); C-REACTIVE PROTEIN 4.26 mg/dL (0.00-0.50); CALCIUM 9.4 mg/dL (8.4-10.2); CREATININE, serum 1.14 mg/dL (0.57-1.11); TOTAL PROTEIN 6.4 gm/dL (6.2-8.1)
[2021-11-10 00:59] LABS: COLLECTION METHOD CLEAN CATCH
[2021-11-10 01:09] LABS: MUCOUS Present (NOT PRESENT); PH 5 (5-8); URINE APPEARANCE Hazy (CLEAR/HAZY); URINE BACTERIA Rare /hpf (NONE SEEN); URINE BLOOD 1+ (NEGATIVE); URINE COLOR Yellow (YELLOW); URINE GLUCOSE Negative (NEGATIVE); URINE KETONE Trace (NEGATIVE); URINE NITRATE Negative (NEGATIVE); URINE PROTEIN(semi-quant) Negative (NEGATIVE); URINE UROBILINOGEN Negative (NEGATIVE)
[2021-11-10] MEDS ORDERED: ZOFRAN ODT4 MG PO (01:52)
[2021-11-10] MEDS ORDERED: MACROBID 1100 MG/CAP PO (01:52)
[2021-11-10 02:00] VITALS: BP 111/55; PULSE 67
[2021-11-10] MEDS ORDERED: VANCOCIN H125 MG/CAP PO (15:56)
[2021-11-12] MEDS ORDERED: CIPRO 500MG TA500 MG PO (11:45)
== END 2021-11-10 02:35 | disposition home or self-care (01) ==
LOC: COL.ER 22:27
PROVIDERS: Physician Assistant
DX: K51.90 Ulcerative colitis, unspecified, without complications (principal); N39.0 Urinary tract infection, site not specified; I48.91 Unspecified atrial fibrillation; Z79.01 Long term (current) use of anticoagulants; Z79.1 Long term (current) use of non-steroidal anti-inflammatories (NSAID); Z88.1 Allergy status to other antibiotic agents
CPT/HCPCS: J0696; J2405; J3010; J7030; Q9967